=== PATIENT | female | born 1965 | race Caucasian/White ===

== ENCOUNTER → 2018-07-05 | Outpatient (CLI) | payer OTHER ==
[~2018-07-05] MED LIST: ANTIVERT 25MG25 MG PO; ASPIRIN E.C. 8181 MG PO; ATIVAN 0.50.5 MG/TAB PO; BONINE25 MG PO; CLARITIN 1010 MG/TAB PO; COLACE 100100 MG/CAP PO; FIORICET 325 MG1 TA1 PO; FLEXERIL 1010 MG/TAB PO; KLOR-CON M2020 MEQ PO; LASIX 20MG TABL20 MG PO; LINZESS290CAP PO; MOBIC15 MG PO; NEURONTIN800 MG/TAB PO; PERCOCET 325 MG1 TAB PO; PERCR 7.5 PO; PROZAC 20MG20 MG PO; SAVELLA100 MG PO; SINGULAIR 110 MG/TAB PO; TOPAMAX 100MG100 M1 PO; TOPROL XL 25MG25 MG PO; TROKEN200 PO; VITAMIN D 1001000 IU PO; VITAMIN D31000 I1 PO; XANAX 0.5MG0.5 MG PO; ZANAFLEX CAPSULE4 MG PO; ZANTAC 150150 MG PO; ZANTAC 150MG T150 MG PO; ZOCOR 20MG20 MG PO; ZOFRAN 4MG T4 MG/TAB PO; ZYRTEC 10MG10 MG PO
== END ==
LOC: COL.RAD 07:27
DX: R11.2 Nausea with vomiting, unspecified (principal); R68.81 Early satiety
CPT/HCPCS: A9541

== ENCOUNTER 2018-07-25 08:11 | Day surgery (SDC) | payer OTHER ==
[~2018-07-25] VITALS: Ht 157.5 cm; Wt 105.5 kg
[~2018-07-25 08:11] MED LIST changes: -TOPAMAX 100MG100 M1 PO; +TOPAMAX200 MG PO
[2018-07-25] MEDS ORDERED: DYAZIDE 25 MG-31 CAP PO (09:02)
[2018-07-25 10:01] VITALS: BP 110/69; PULSE 82; TEMP 97.6
[2018-07-25] MEDS ORDERED: PRILOSEC 20MG20 MG PO (10:22)
[2018-07-25 10:25] VITALS: BP 111/74; PULSE 81; TEMP 97.7
[2018-07-25 10:40] VITALS: BP 102/71; PULSE 76
[2018-07-25 10:55] VITALS: BP 110/77; PULSE 78
[2018-07-25 11:10] VITALS: BP 107/78; PULSE 69
== END 2018-07-25 11:30 | disposition home or self-care (01) ==
LOC: SDCO 08:11
DX: K63.89 Other specified diseases of intestine (principal); K21.0 Gastro-esophageal reflux disease with esophagitis; K25.9 Gastric ulcer, unspecified as acute or chronic, without hemorrhage or perforation; K29.30 Chronic superficial gastritis without bleeding; R63.0 Anorexia; K64.0 First degree hemorrhoids; F43.10 Post-traumatic stress disorder, unspecified; E78.00 Pure hypercholesterolemia, unspecified; G43.909 Migraine, unspecified, not intractable, without status migrainosus; M19.90 Unspecified osteoarthritis, unspecified site; K58.1 Irritable bowel syndrome with constipation; D64.9 Anemia, unspecified; G62.9 Polyneuropathy, unspecified; I25.10 Atherosclerotic heart disease of native coronary artery without angina pectoris; M79.7 Fibromyalgia; K76.0 Fatty (change of) liver, not elsewhere classified; F32.9 Major depressive disorder, single episode, unspecified; F41.9 Anxiety disorder, unspecified; Z79.82 Long term (current) use of aspirin; Z88.1 Allergy status to other antibiotic agents; Z90.710 Acquired absence of both cervix and uterus; Z87.891 Personal history of nicotine dependence; Z83.71 Family history of colonic polyps; Z83.79 Family history of other diseases of the digestive system
CPT/HCPCS: J2704; J7030

== ENCOUNTER 2018-10-18 08:44 | Day surgery (SDC) | payer OTHER ==
[~2018-10-18] VITALS: Ht 157.6 cm; Wt 103.0 kg
[2018-10-18] VITALS (11 sets, daily range): BP systolic 12–126; BP diastolic 66–78; PULSE 73–87; TEMP 97.4–97.7
[~2018-10-18 08:44] MED LIST changes: +DYAZIDE 25 MG-31 CAP PO; +PRILOSEC 20MG20 MG PO
[2018-10-18 09:32] LABS: HEMOGLOBIN 11.9 g/dl (12.5-16.0); MEAN CELL VOLUME 96 fl (80.0-100.0); MEAN CORPUSCULAR HEMOGLOBIN 32 pg (27.0-31.0); MEAN CORPUSCULAR HGB CONC 33 g/dl (33.0-37.0); MEAN PLATELET VOLUME 13.5 fl (7.4-10.4); PLATELET COUNT 167 K/mm3 (130-400); RED BLOOD COUNT 3.77 M/mm3 (4.10-5.30); REDCELL DISTRIBUTION WIDTH-CV 12.3 % (11.5-14.5)
[2018-10-18 09:37] LABS: PROTHROMBIN TIME 11.6 SECONDS (9.7-12.8)
[2018-10-18] MEDS ORDERED: MOBIC15 MG PO (09:37)
[2018-10-18 09:45] LABS: CALCIUM 9.1 mg/dL (8.4-10.2); POTASSIUM 3.8 mmol/L (3.4-5.0)
== END 2018-10-18 15:45 | disposition home or self-care (01) ==
LOC: COL.CAR 08:44
PROVIDERS: Internal Medicine Cardiovascular Disease
DX: I25.10 Atherosclerotic heart disease of native coronary artery without angina pectoris (principal); R94.39 Abnormal result of other cardiovascular function study; J44.9 Chronic obstructive pulmonary disease, unspecified; E78.5 Hyperlipidemia, unspecified; G47.33 Obstructive sleep apnea (adult) (pediatric); G43.909 Migraine, unspecified, not intractable, without status migrainosus; G89.29 Other chronic pain; M54.9 Dorsalgia, unspecified; M19.90 Unspecified osteoarthritis, unspecified site; Z88.8 Allergy status to other drugs, medicaments and biological substances
CPT/HCPCS: C1760; C1894; J1644; J2250; J3010; Q9967